=== PATIENT | male | born 1975 | race African-American/Black ===

== ENCOUNTER 2019-01-26 00:32 | Emergency (ER) | payer OTHER ==
[~2019-01-26] VITALS: Ht 193 cm; Wt 86.2 kg
[2019-01-26 01:28] VITALS: BP 153/115
[2019-01-26] MEDS ORDERED: ACETAMINOPHEN 325 MG TABLET ONE (01:29)
[2019-01-26] MEDS ORDERED: ACETAMINOPHEN 650 MG/20.3 ML UDC PO ONE (01:30)
== END 2019-01-26 01:36 | disposition home or self-care (01) ==
LOC: ER 00:38
DX: M54.5 Low back pain (principal); G89.29 Other chronic pain; I10 Essential (primary) hypertension; J45.909 Unspecified asthma, uncomplicated; F17.210 Nicotine dependence, cigarettes, uncomplicated; Z59.0 Homelessness

== ENCOUNTER 2019-06-20 20:07 | Inpatient (IN) | payer OTHER ==
[~2019-06-20] VITALS: Ht 193 cm; Wt 82.6 kg
--- NOTE | 2019-06-20 21:18 | NUR ---
JAIROF FROM STREET. TO ER BED 11. AAOX4. NO RESP DISTRESS NOTED. AMBULATORY. CAME IN WITHDRAWAL FROM HEROIN AND R EXTREMETY SWELLING. PT REPORTS THAT HE LAST USE HEROIN YESTERDAY BY INJECTED. PT REPORTS CONSUMMING 1GM /DAY. PT REPORTS GENERALZIED BODY PAIN 05/06. R ARM SWELLING NOTED WHICH STARTED A WEEK AGO PER PT. PT IS AFEBRILE. AWAITING MD FOR EVAL. TERRELLS
[2019-06-20] MEDS ORDERED: PIPERACILLIN /TAZOBACTAM 3.375 G in IV D5W 50 ML IV ONE (21:30)
[2019-06-20] MEDS ORDERED: IV NS 0.9% 1,000 ML BAG IV ONE (21:30)
[2019-06-20] MEDS ORDERED: VANCOMYCIN 1 GM in IV D5W 250 ML IV ONE (21:30)
[2019-06-20] MEDS ORDERED: VANCOMYCIN 1 GM VIAL ONE (21:36)
[2019-06-20] MEDS ORDERED: PIPERACILLIN /TAZOBACTAM 3.375 G VIAL IV ONE (21:36)
[2019-06-20 21:38] LABS: BASOPHILS % (AUTO) 0.4 % (0.0-2.0); EOSINOPHILS % (AUTO) 0.4 % (0.0-6.0); HEMATOCRIT 37 % (39-51); HEMOGLOBIN 12.1 g/dL (13.5-17.5); LYMPHOCYTES # (AUTO) 1.2 /CMM (0.8-4.8); LYMPHOCYTES % (AUTO) 11.9 % (20.0-44.0); MEAN CORPUSCULAR HGB CONC 33 g/dl (31.0-36.0); MEAN CORPUSCULAR VOLUME 83 fL (80-96); MONOCYTES # (AUTO) 1.3 /CMM (0.1-1.30); MONOCYTES % (AUTO) 12.7 % (2.0-12.0); NEUTROPHILS # (AUTO) 7.5 /CMM (1.8-8.9); NEUTROPHILS % (AUTO) 74.6 % (43.0-81.0); PLATELET COUNT (AUTO) 316 /CMM (150-450); RED BLOOD CELL COUNT(AUTO) 4.44 MIL/uL (4.5-6.0); WHITE BLOOD COUNT (AUTO) 10.1 K/uL (4.3-11.0)
[2019-06-20 21:56] LABS: CALCIUM, SERUM 9.2 mg/dL (8.5-10.1); CARBON DIOXIDE 31 mmol/L (21-32); CHLORIDE 96 mmol/L (98-107); CREATININE 1.3 mg/dL (0.6-1.3); GLUCOSE 121 mg/dL (74-106); POTASSIUM 3.7 mmol/L (3.5-5.1); SODIUM SERUM 121 mmol/L (136-145); UREA NITROGEN, BLOOD 17 mg/dL (7-18)
[2019-06-20 22:02] LABS: ALANINE AMINOTRANSFERASE 16 U/L (12-78); ALKALINE PHOSPHATASE 118 U/L (46-116); ASPARTATE AMINOTRANSFERASE 13 U/L (15-37); BILIRUBIN,DIRECT 0.2 mg/dL (0.0-0.2); BILIRUBIN,TOTAL 0.5 mg/dL (0.2-1.0); TOTAL PROTEIN, SERUM 7.6 g/dL (6.4-8.2)
[2019-06-20] MEDS ORDERED: KETOROLAC TROMETHAMINE INJ 30 MG/ML VIAL ONE (22:30)
[2019-06-20] MEDS ORDERED: LORAZEPAM INJ 2 MG/ML VIAL ONE (22:30)
[2019-06-20] MEDS ORDERED: KETOROLAC TROMETHAMINE INJ 30 MG/ML VIAL IV ONE (22:30)
[2019-06-20] MEDS ORDERED: LORAZEPAM INJ 2 MG/ML VIAL IV ONE (22:30)
[2019-06-20] MEDS ORDERED: IOHEXOL-300 100 ML VIAL IV ONE ×2 (22:36→23:03)
[2019-06-20] MEDS ORDERED: CT SWABBABLE VALVE TRANS SET 1 EA INFUS.SET MC ONE (22:36)
[2019-06-20] MEDS ORDERED: IV NS 0.9% 250 ML IV ONE (22:36)
[2019-06-21 00:06] LABS: APPEARANCE,URINE Clear (CLEAR); BILIRUBIN,URINE Negative (NEGATIVE); BLOOD, URINE Trace-intact Ery/uL (NEGATIVE); COLOR,URINE Yellow (YELLOW); KETONES,URINE Negative (NEGATIVE); LEUKOCYTE ESTERASE ,URINE Negative (NEGATIVE); NITRITE, URINE Negative (NEGATIVE); PH,URINE 5.5 (5.0-8.0); PROTEIN,URINE 30 mg/dl (NEGATIVE); UGLUCOSE Negative (NEGATIVE)
[2019-06-21 00:17] LABS: BACTERIA,URINE None seen /HPF (None Seen); RBC,URINE 0-2 /HPF (0-2); SQUAMOUS EPITHELIAL CELL,UR Few /HPF (None Seen); WBC,URINE 0-2 /HPF (0-3)
--- NOTE | 2019-06-21 01:02 | NUR ---
BED ASSIGNMENT 111-1
--- NOTE | 2019-06-21 01:05 | NUR ---
CALLED TO UNIT FOR REPORT, ACCEPTING NURSE WITH OTHER PATIENT. WILL CALL BACK
[2019-06-21] MEDS ORDERED: IV NS 0.9% 1,000 ML BAG IV ONE (01:30)
--- NOTE | 2019-06-21 01:30 | NUR ---
MS RN OPENING NOTE RECEIVED PATIENT FROM ER NURSE. A/OX4 PATIENT SHOWS SIGNS OF PAIN. ON ROOM AIR WITH NO SOB. LUNGS CLEAR. ALL EXTREMITIES WNL. SKIN IS INTACT EXCEPT FOR SWELLING ON THE RIGHT FOREARM. PATIENT HAS AN IV ON THE LEFT ARM #20G NS RUNNING AT 75ML/HR. PATIENT SEEMS DROWSY. ALL SAFETY PRECAUTIONS APPLIES. BED LOCKED IN LOW POSITION, CALL LIGHT WITHIN REACH, AND SIDE RAILS UP X2. WILL CONTINUE TO MONITOR.
--- NOTE | 2019-06-21 01:36 | NUR ---
REPORT GIVEN TO MARIA ANTONIA KNE FOR KENDRICK. PT GOING TO 111-1
--- NOTE | 2019-06-21 01:47 | NUR ---
PT TRANSPORTED TO UNIT ON [facility] WITH EMT AND RN AT BEDSIDE W/ ACLS PROTOCOL. NAD NOTED DURING TRANSPORT. PT AMBULATED FROM [facility] TO BED
[2019-06-21] MEDS ORDERED: MAGNESIUM HYDROXIDE 30 ML UDC PO PRN (02:00)
[2019-06-21] MEDS ORDERED: ZOLPIDEM TARTRATE 5 MG TABLET PO PRN (02:00)
[2019-06-21] MEDS ORDERED: ACETAMINOPHEN 325 MG TABLET PO PRN (02:00)
[2019-06-21] MEDS ORDERED: Z GUARD REMEDY 2 OZ OINT TP PRN (02:00)
[2019-06-21] MEDS ORDERED: ONDANSETRON HCL/PF 4 MG/2 ML VIAL IVP PRN (02:00)
[2019-06-21] MEDS ORDERED: MAG HYDROX/AL HYDROX/SIMETH 30 ML UDC PO PRN (02:00)
[2019-06-21] MEDS: HYDROCODONE/APAP 5/325MG 1 EACH TABLET PO PRN ×4 (03:31→21:24)
[2019-06-21 03:48] VITALS: BP 137/97
[2019-06-21 04:00] VITALS: BP 134/88
[2019-06-21] MEDS: IV NS 0.9% 1,000 ML IV PRN (05:06)
[2019-06-21] MEDS ORDERED: PIPERACILLIN /TAZOBACTAM 3.375 G VIAL IV ONE (05:23)
[2019-06-21] MEDS: PIPERACILLIN /TAZOBACTAM 3.375 G in IV D5W 50 ML IV SCH ×3 (05:29→19:01)
--- NOTE | 2019-06-21 07:10 | NUR ---
MS RN OPENING RECEIVED PATIENT SLEEPING. EASILY AROUSABLE TO NAME. A/OX4. NO RESPIRATORY DISTRESS. DENIES NAUSEA. NO SWEATING NOTED. REPORTS 10/10 PAIN. PAIN MEDICATION GIVEN ORDERED. RIGHT ARM NOTED TO BE SWOLLEN. L FA 20G INFUSING NS @75mL/HR. PATIENT ABLE TO MAKE NEEDS KNOWN, WILL CONT TO MONITOR
--- NOTE | 2019-06-21 07:38 | NUR ---
MS RN CLOSING NOTE PATIENT IN BED WITH SOME DISCOMFORT IN THE ARM. BUT OTHERWISE PATIENT IS TOLERATING ROOM AIR AND IV ACCESS IS PATENT AND RUNNING WITH SALINE. ALL SAFETY PRECAUTIONS APPLIED AND ENDORSED PATIENT TO AM NURSE.
[2019-06-21 07:47] LABS: BASOPHILS % (AUTO) 0.4 % (0.0-2.0); EOSINOPHILS % (AUTO) 1.4 % (0.0-6.0); HEMATOCRIT 35 % (39-51); HEMOGLOBIN 11.5 g/dL (13.5-17.5); LYMPHOCYTES # (AUTO) 1.1 /CMM (0.8-4.8); MEAN CORPUSCULAR HGB CONC 33 g/dl (31.0-36.0); MEAN CORPUSCULAR VOLUME 82 fL (80-96); MONOCYTES # (AUTO) 1.5 /CMM (0.1-1.30); MONOCYTES % (AUTO) 15.5 % (2.0-12.0); NEUTROPHILS % (AUTO) 71.7 % (43.0-81.0); PLATELET COUNT (AUTO) 282 /CMM (150-450); RED BLOOD CELL COUNT(AUTO) 4.24 MIL/uL (4.5-6.0); WHITE BLOOD COUNT (AUTO) 9.8 K/uL (4.3-11.0)
[2019-06-21 08:00] VITALS: BP 149/110
[2019-06-21 08:06] LABS: ALBUMIN 2.4 g/dL (3.4-5.0); BILIRUBIN,TOTAL 0.6 mg/dL (0.2-1.0); CALCIUM, SERUM 8.4 mg/dL (8.5-10.1); CREATININE 0.9 mg/dL (0.6-1.3); POTASSIUM 3.8 mmol/L (3.5-5.1); TOTAL PROTEIN, SERUM 6.6 g/dL (6.4-8.2)
[2019-06-21] MEDS ORDERED: FEE PK DOSING 1 MIN EA MC ONE (08:11)
[2019-06-21] MEDS ORDERED: VANCOMYCIN 0.75 GM in IV D5W 250 ML IV SCH (09:00)
--- NOTE | 2019-06-21 10:04 | NUR ---
Social service consult requested by Dr. Pearce for homelessness and drug use. Pt. is a 44 year old male who was admitted to [facility] for cellulitis and hyponatremia. REJI met with pt. bedside. Pt. is alert and oriented x 4. Pt. is cooperative with SW during the assessment. Pt's mood is congruent. Pt. states he is homeless and has been for the past few years. Pt. is originally from [place]. Pt's emergency contact is his mother Raine . Pt. is a heroin user and uses daily. Pt. denies methamphetamine, marijuana and alcohol use. Pt. states he does not smoke cigarettes. Pt. has a psychiatric diagnosis of Depression and is currently not taking any medications. Pt. denies suicidal and homicidal ideations and visual/auditory hallucinations at this time. REJI offered pt. longterm placement and pt. is willing to go to longterm. SW to contact homeless longterm on day of discharge for bed availability. No other social service needs are requested at this time. SW is available, if needed. REJI to follow up with pt. regarding longterm placement and resources on day of discharge. REJI updated [facility] with aforementioned information.
[2019-06-21] MEDS: MORPHINE SULFATE INJ 2 MG/ML DISP.SYRIN IV PRN ×2 (13:06→19:01)
--- NOTE | 2019-06-21 15:38 | NUR ---
ASHLEY BAEZ: [facility]
[2019-06-21 16:00] VITALS: BP 155/110
--- NOTE | 2019-06-21 16:17 | NUR ---
PER PATIENT, MORPHINE IS NOT WORKING FOR PAIN CONTROL, IS REQUESTING OXYCODONE + ATIVAN. DR. CABALLERO AWARE
[2019-06-21] MEDS ORDERED: CLONIDINE HCL 0.1 MG TABLET PO PRN (16:30)
[2019-06-21] MEDS: LORAZEPAM 1 MG TABLET PO PRN (16:36)
--- NOTE | 2019-06-21 18:00 | NUR ---
MS RN CLOSING BP NOTED TO BE ELEVATED @0800 + 1600. RECEIVED ORDER FROM FOR PRN BP MED. PATIENT REPORTED ANXIETY, RECEIVED PRN ORDER FOR ATIVAN. PATIENT WANTED TO SMOKE, PER VETERINARY MICROBIOLOGIST BALJINDER, WE ARE NON SMOKING HOSPITAL. INFORMED PATIENT, OFFERED NICOTINE PATCH, HE DECLINED. THROUGHOUT SHIFT, PATIENT REPORTED 10/10 PAIN, MEDS GIVEN ORDERED. ENDORSED TO NOC RN FOR KENDRICK
[2019-06-21] MEDS ORDERED: CLON0.1T PO (18:05)
[2019-06-21 20:00] VITALS: BP 140/95
--- NOTE | 2019-06-21 20:00 | NUR ---
RN INITIAL MS NOTE RECEIVED PATIENT, A/OX4. NO RESPIRATORY DISTRESS. DENIES NAUSEA. NO SWEATING NOTED. REPORTS 8, GENERALIZED. PAIN MEDICATION GIVEN ORDERED. RIGHT ARM NOTED TO BE SWOLLEN. L FA 20G INFUSING NS @75mL/HR. PATIENT ABLE TO MAKE NEEDS KNOWN, WILL CONT TO MONITOR
[2019-06-21] MEDS: VANCOMYCIN 1 GM in IV D5W 250 ML IV SCH (21:24)
[2019-06-22 00:13] VITALS: BP 140/95
[2019-06-22] MEDS: PIPERACILLIN /TAZOBACTAM 3.375 G in IV D5W 50 ML IV SCH ×2 (00:34→05:10)
[2019-06-22] MEDS: MORPHINE SULFATE INJ 2 MG/ML DISP.SYRIN IV PRN ×2 (02:12→08:02)
[2019-06-22] MEDS: LORAZEPAM 1 MG TABLET PO PRN (02:12)
[2019-06-22 04:45] VITALS: BP 142/63
--- NOTE | 2019-06-22 06:17 | NUR ---
RN CLOSING MS NOTE PATIENT, A/OX4. NO RESPIRATORY DISTRESS. DENIES NAUSEA. DENIES ANY PAIN. RIGHT ARM NOTED TO BE SWOLLEN. L FA 20G INFUSING NS @75mL/HR. PATIENT ABLE TO MAKE NEEDS KNOWN, WILL CONT TO MONITOR
[2019-06-22 08:24] LABS: ALBUMIN 2.8 g/dL (3.4-5.0); BILIRUBIN,TOTAL 0.7 mg/dL (0.2-1.0); CREATININE 1.1 mg/dL (0.6-1.3); MAGNESIUM 1.8 mg/dL (1.8-2.4); PHOSPHORUS 3.4 mg/dL (2.5-4.9); POTASSIUM 3.5 mmol/L (3.5-5.1); TOTAL PROTEIN, SERUM 7.5 g/dL (6.4-8.2)
[2019-06-22 08:41] LABS: BASOPHILS % (AUTO) 0.4 % (0.0-2.0); EOSINOPHILS % (AUTO) 0.5 % (0.0-6.0); HEMATOCRIT 38 % (39-51); HEMOGLOBIN 12.4 g/dL (13.5-17.5); LYMPHOCYTES # (AUTO) 0.8 /CMM (0.8-4.8); LYMPHOCYTES % (AUTO) 7.5 % (20.0-44.0); MEAN CORPUSCULAR HGB CONC 33 g/dl (31.0-36.0); MEAN CORPUSCULAR VOLUME 81 fL (80-96); MONOCYTES # (AUTO) 0.8 /CMM (0.1-1.30); MONOCYTES % (AUTO) 7.7 % (2.0-12.0); NEUTROPHILS # (AUTO) 9.2 /CMM (1.8-8.9); NEUTROPHILS % (AUTO) 83.9 % (43.0-81.0); PLATELET COUNT (AUTO) 344 /CMM (150-450); RED BLOOD CELL COUNT(AUTO) 4.64 MIL/uL (4.5-6.0); WHITE BLOOD COUNT (AUTO) 10.9 K/uL (4.3-11.0)
--- NOTE | 2019-06-22 09:09 | NUR ---
MS RN NOTES IV VANCOMYCIN NOT GIVEN THROUGH [facility] CONTACTED PHARMACY AND THEY INFORMED THAT THEY WILL ADJUST THE DOSE AND IT IS SCHEDULED ON 1000.
[2019-06-22] MEDS: VANCOMYCIN 1 GM in IV D5W 250 ML IV SCH (10:12)
[2019-06-22] MEDS ORDERED: LIDOCAINE 1%-EPI 1:200,000 SDV 10 ML VIAL IJ ONE (11:00)
[2019-06-22] MEDS: IV NS 0.9% 1,000 ML IV PRN (11:45)
--- NOTE | 2019-06-22 12:27 | NUR ---
MS RN NOTES PT LEFT AMA AND REFUSED TO SIGN THE FORM. PT IS ON MORPHINE Q4H AND HE WAS ASKING FOR CHAVES MED. OFFERED NORCO PO MED AND HE REFUSED. EXPLAINED THE CONSEQUENCES OF RESPIRATORY DEPRESSION IF MORPHINE GIVEN TOO SOON. PT LEFT THE UNIT WITH SECURITY AT 1220. BELONGINGS TAKEN REFUSED TO EAT LUNCH.
--- NOTE | 2019-06-22 13:20 | NUR ---
SW was informed by correctional casework specialist Valentina that pt. left AMA this afternoon.
== END 2019-06-22 12:25 | disposition left against medical advice (07) | DRG 720 ==
LOC: ER 20:10 → TELE-TD 06-21 01:05 → MEDSG1 06-21 01:55
PROVIDERS: ADMIT Internal Medicine; ATTEND Internal Medicine
PROC: 0K9 Muscles, Drainage (ICD-10-PCS; principal; 2019-06-22)
DX: A41.9 Sepsis, unspecified organism (principal); E43 Unspecified severe protein-calorie malnutrition; E87.2 Acidosis; E87.1 Hypo-osmolality and hyponatremia; I10 Essential (primary) hypertension; J45.909 Unspecified asthma, uncomplicated; Z59.0 Homelessness; L03.113 Cellulitis of right upper limb; Z68.22 Body mass index [BMI] 22.0-22.9, adult; F11.10 Opioid abuse, uncomplicated; E86.1 Hypovolemia; L02.413 Cutaneous abscess of right upper limb; E88.09 Other disorders of plasma-protein metabolism, not elsewhere classified; D64.9 Anemia, unspecified
CPT/HCPCS: 36415; 71045-TC; 73201-TC; 80048-TC; 80053-TC; 80061-TC; 80076-TC; 80202-TC; 81000-TC; 82550-TC; 83605-TC; 83735-TC; 84100-TC; 85025-TC; 85730-TC; 87040-TC; 87070-TC; 87081-TC; 87086-TC; A6253; G0378; J1885; J2060; J2270; J2543; J3370; J3490; J7030; J7050; J7060; Q9967